=== PATIENT | female | born 1980 | race African-American/Black ===

== ENCOUNTER 2017-05-19 20:55 | Emergency (ER) | payer OTHER ==
[~2017-05-19] VITALS: Ht 160 cm; Wt 95.3 kg
[~2017-05-19 20:55] MED LIST: FLAGYL500 MG PO; IBUPROFEN 600600 M1 PO; NAPROSYN500 MG PO; NOHOMEMEDICATIONS; NORCO 5-325 TA1 EACH PO; PEPTO-BISM262 MG/15 PO; PHENERGAN 25 MG25 M1 PO; PHENTERMINE HCL30 MG PO; WEIGHT LOSS MED; ZANTAC 150MG T150 M1 PO; ZOFRAN ODT4 MG PO
[2017-05-19 23:22] VITALS: BP 112/75
== END 2017-05-19 23:23 | disposition home or self-care (01) ==
LOC: ER 20:55
DX: Z77.098 Contact with and (suspected) exposure to other hazardous, chiefly nonmedicinal, chemicals (principal); R07.0 Pain in throat; R07.9 Chest pain, unspecified

== ENCOUNTER 2020-01-16 12:09 | Emergency (ER) | payer OTHER ==
[~2020-01-16] VITALS: Ht 160 cm; Wt 95.3 kg
[~2020-01-16 12:09] MED LIST changes: +FLEXERIL PO; +MEDROLDOSEPACK PO; +MOBIC15 MG PO
[2020-01-16 12:30] LABS: ABSOLUTE NEUTROPHILS 4.9 thou/uL (1.4-8.2); BASOPHILS 0.8 % (0.0-2.0); EOSINOPHILS 0.7 % (0.0-3.0); HEMATOCRIT 35.4 % (37.0-47.0); HEMOGLOBIN 11.5 gm/dL (12.0-15.0); LYMPHOCYTES 24.5 % (24.0-44.0); MCH 27.1 pg (26.0-34.0); MCHC 32.6 g/dL (28.0-37.0); MCV 83.1 fL (80.0-100.0); MONOCYTES 4.1 % (1.0-8.0); PLATELET COUNT 257 thou/uL (150-400); POLYS 69.9 % (36.0-66.0); RBC 4.26 mil/uL (4.20-5.00); RDW 14.1 % (10.5-14.5); WBC 7.1 thou/uL (4.0-11.0)
[2020-01-16 12:41] LABS: CALCIUM 8.7 mg/dL (8.5-10.1); POTASSIUM 3.6 mmol/L (3.5-5.1)
[2020-01-16 12:46] LABS: ALBUMIN 3.8 g/dL (3.4-5.0); TOTAL BILIRUBIN 0.7 mg/dL (<0.1-1.0); TOTAL PROTEIN 7.6 g/dL (6.4-8.2)
[2020-01-16 13:46] LABS: URINE BILIRUBIN NEGATIVE (Negative); URINE BLOOD 1+ (Negative); URINE CLARITY CLEAR; URINE COLOR YELLOW; URINE GLUCOSE-RANDOM* NEGATIVE (Negative); URINE KETONES NEGATIVE (Negative); URINE LEUKOCYTES-REFLEX NEGATIVE (Negative); URINE NITRITE-REFLEX NEGATIVE (Negative); URINE PROTEIN (DIPSTICK) NEGATIVE (Negative); URINE SPECIFIC GRAVITY 1.025 (1.005-1.035); URINE UROBILINOGEN 0.2 E.U./dl (0.2-1.0)
[2020-01-16 13:56] LABS: BACTERIA-REFLEX 1-9 Few /HPF (None Seen); CASTS None Seen /LPF (None Seen); CRYSTALS None Seen /LPF (None Seen); SQUAMOUS 4-10 Moderate /LPF (0-3); URINE WBC-REFLEX 0-5 Rare /HPF (0-5)
[2020-01-16 13:57] LABS: URINE RBC 0-2 Rare /HPF (0-2)
[2020-01-16] MEDS ORDERED: FLOMAX0.4 MG PO ×2 (15:22→15:27)
[2020-01-16] MEDS ORDERED: NORCO 10-325 T1 EACH PO ×2 (15:22→15:27)
[2020-01-16] MEDS ORDERED: KEFLEX500 M1 PO ×2 (15:22→15:27)
[2020-01-16] MEDS ORDERED: ONDANSETRON HCL4 M2 PO ×2 (15:22→15:27)
[2020-01-16 16:28] VITALS: BP 105/59
== END 2020-01-16 16:45 | disposition home or self-care (01) ==
LOC: ER 12:09
PROVIDERS: Physician Assistant
DX: N20.1 Calculus of ureter (principal); R11.2 Nausea with vomiting, unspecified

== ENCOUNTER 2021-04-20 00:56 | Emergency (ER) | payer OTHER ==
[~2021-04-20] VITALS: Ht 160 cm; Wt 86.2 kg
[~2021-04-20 00:56] MED LIST changes: +FLOMAX0.4 MG PO; +KEFLEX500 M1 PO; +NORCO 10-325 T1 EACH PO; +ONDANSETRON HCL4 M2 PO
[2021-04-20 01:10] VITALS: BP 130/56
[2021-04-20 01:18] LABS: URINE BILIRUBIN NEGATIVE (Negative); URINE BLOOD 2+ (Negative); URINE CLARITY CLEAR; URINE COLOR YELLOW; URINE GLUCOSE-RANDOM* NEGATIVE (Negative); URINE KETONES NEGATIVE (Negative); URINE LEUKOCYTES-REFLEX TRACE (Negative); URINE NITRITE-REFLEX NEGATIVE (Negative); URINE PROTEIN (DIPSTICK) NEGATIVE (Negative); URINE UROBILINOGEN 0.2 E.U./dl (0.2-1.0)
[2021-04-20] MEDS ORDERED: ZOFRAN ODT4 MG PO (01:31)
[2021-04-20 01:40] LABS: AMORPHOUS URATES Few /LPF (None Seen); BACTERIA-REFLEX None Seen /HPF (None Seen); CASTS None Seen /LPF (None Seen); CRYSTALS None Seen /LPF (None Seen); MUCUS 0-3 Light strn/LPF (None Seen); SQUAMOUS 0-3 Few /LPF (0-3); URINE RBC 1-2 Rare /HPF (NONE SEEN); URINE WBC-REFLEX 0-5 Rare /HPF (0-5)
== END 2021-04-20 01:41 | disposition home or self-care (01) ==
LOC: ER 00:56
PROVIDERS: Emergency Medicine
DX: R11.0 Nausea (principal); Z72.89 Other problems related to lifestyle

== ENCOUNTER 2021-08-04 18:56 | Emergency (ER) | payer OTHER ==
[~2021-08-04] VITALS: Ht 167.6 cm; Wt 86.2 kg
[2021-08-04 19:13] LABS: URINE BILIRUBIN NEGATIVE (Negative); URINE BLOOD 1+ (Negative); URINE COLOR YELLOW; URINE GLUCOSE-RANDOM* NEGATIVE (Negative); URINE KETONES TRACE (Negative); URINE NITRITE-REFLEX NEGATIVE (Negative); URINE PROTEIN (DIPSTICK) NEGATIVE (Negative); URINE SPECIFIC GRAVITY 1.025 (1.005-1.035); URINE UROBILINOGEN 0.2 E.U./dl (0.2-1.0)
[2021-08-04 19:15] LABS: URINE CLARITY HAZY; URINE LEUKOCYTES-REFLEX 2+ (Negative)
[2021-08-04 19:24] LABS: SQUAMOUS 4-10 Moderate /LPF (0-3)
[2021-08-04 19:25] LABS: URINE RBC >20 Many /HPF (NONE SEEN)
[2021-08-04 19:26] LABS: CASTS None Seen /LPF (None Seen); CRYSTALS None Seen /LPF (None Seen)
[2021-08-04 19:52] VITALS: BP 132/81
== END 2021-08-04 19:52 | disposition home or self-care (01) ==
LOC: ER 18:56
PROVIDERS: Nurse Practitioner
DX: N89.8 Other specified noninflammatory disorders of vagina (principal); Z11.3 Encounter for screening for infections with a predominantly sexual mode of transmission